=== PATIENT | female | born 1945 ===

== ENCOUNTER 2022-09-15 22:01 | Outpatient (REF) | payer OTHER, SELFPAY ==
[2022-09-15 22:20] LABS: Basophils Absolute Auto 0.03 K/uL (0.00-0.30); Basophils Percent Auto 0.5 % (0.0-3.0); Eosinophils Absolute Auto 0.32 K/uL (0.00-0.50); Eosinophils Percent Auto 5.4 % (0.0-7.0); Hematocrit 39.8 % (33.0-51.0); Hemoglobin* 13.2 gm/dL (12.0-16.0); Immature Granulocytes Abs Auto 0.01 K/uL (0.00-0.30); Immature Granulocytes Pct Auto 0.2 %; Lymphocytes Absolute Auto 1.21 K/uL (0.90-2.90); Lymphocytes Percent Auto 20.4 % (20-44); Mean Corpuscular HGB Conc 33 gm/dL (32-36); Mean Corpuscular Hemoglobin 30 pg (26-34); Mean Corpuscular Volume 92 fL (80-100); Monocytes Percent Auto 12.7 % (0.0-11.0); Neutrophils Percent Auto 60.8 % (42.0-72.0); Platelet Count* 312 K/uL (140-440); RDW Coefficient of Variation % 13.1 % (11.5-15.5); Red Blood Count 4.35 m/uL (4.00-5.20); White Blood Count* 5.92 K/uL (4.50-11.00)
[2022-09-15 22:23] LABS: Albumin* 4.2 g/dL (3.3-5.0); Chloride* 103 mmol/L (96-114); Sodium* 139 mmol/L (135-149)
[2022-09-15 22:24] LABS: Potassium* 3.8 mmol/L (3.6-5.1)
[2022-09-15 22:26] LABS: Alanine Aminotransferase* 22 U/L (4-35); Alkaline Phosphatase* 52 U/L (40-150); Aspartate Amino Transferase* 25 U/L (12-35); Bilirubin Total* 0.5 mg/dL (0.1-1.5); Blood Urea Nitrogen* 21 mg/dL (7-30); Carbon Dioxide* 33 mmol/L (20-32); Creatinine* 0.9 mg/dL (0.5-1.5); Estimated Glomerular Filt Rate 66 ml/min; Glucose* 89 mg/dL (60-115); Total Protein* 6.9 g/dL (6.0-8.3)
[2022-09-15 22:27] LABS: Calcium* 9.6 mg/dL (8.4-10.6)
[2022-09-15 22:29] LABS: Slide Review Reflex No
== END 2022-09-15 22:02 | disposition home or self-care (01) ==
LOC: NPINS 22:01
PROVIDERS: Visit Provider Physician Assistant
DX: M79.604 Pain in right leg (principal)
CPT/HCPCS: 80053; 85025